=== PATIENT | female | born 1960 | race Caucasian/White ===

== ENCOUNTER → 2016-10-07 | Outpatient (CLI) | payer BC | LOC: MC.RAD 07:51 | DX: Z12.31 Encounter for screening mammogram for malignant neoplasm of breast (principal) ==

== ENCOUNTER → 2017-10-08 | Outpatient (CLI) | payer BC | LOC: MC.RAD 06:51 | DX: Z12.31 Encounter for screening mammogram for malignant neoplasm of breast (principal) ==

== ENCOUNTER → 2018-10-10 | Outpatient (CLI) | payer BC | LOC: MC.RAD 06:52 | DX: Z12.31 Encounter for screening mammogram for malignant neoplasm of breast (principal); R92.0 Mammographic microcalcification found on diagnostic imaging of breast ==

== ENCOUNTER → 2018-10-11 | Outpatient (CLI) | payer BC | LOC: MC.RAD 13:00 | DX: R92.0 Mammographic microcalcification found on diagnostic imaging of breast (principal) ==

== ENCOUNTER → 2018-10-12 | Outpatient (CLI) | payer BC | LOC: MC.RAD 06:55 | DX: R92.0 Mammographic microcalcification found on diagnostic imaging of breast (principal); R92.1 Mammographic calcification found on diagnostic imaging of breast ==

== ENCOUNTER 2018-11-04 08:40 | Day surgery (SDC) | payer BC ==
[~2018-11-04] VITALS: Ht 172.7 cm; Wt 81.7 kg
[2018-11-04 09:14] VITALS: BP 122/71; PULSE 79; TEMP 97.3
[2018-11-04] MEDS ORDERED: TYLENOL 325MG325 MG PO (09:25)
[2018-11-04] MEDS ORDERED: AMBIEN 10MG10 MG PO (09:26)
[2018-11-04] MEDS ORDERED: NORCO 325 MG-51 TAB PO (12:00)
[2018-11-04 12:16] VITALS: TEMP 97.6
[2018-11-04 12:40] VITALS: BP 122/68; PULSE 71
--- NOTE | 2018-11-04 12:40 | NUR ---
TO RM 6 PER CART FROM PACU. ALERT ORIENTED X3, TALKING TO STAFF. REQUESTED PARENTS TO WAIT IN WAITING RM TILL SHE IS READY TO GO HOME. DENIES PAIN OR DISCOMFORT DENIES N/V DRESSING CLEAN DRY INTACT RECEIVED WATER
[2018-11-04 12:55] VITALS: BP 127/74; PULSE 81
--- NOTE | 2018-11-04 12:55 | NUR ---
PATIENT ASKING WHAT SHE NEEDS TO DO TO GO HOME. INFORMED SHE WOULD NEED TO EAT DRINK AND PEE.
[2018-11-04 13:10] VITALS: BP 125/66; PULSE 67
--- NOTE | 2018-11-04 13:10 | NUR ---
RECEIVED CRACKERS AND 2ND CUP OF WATER.
[2018-11-04 13:20] VITALS: BP 115/84; PULSE 78
--- NOTE | 2018-11-04 13:20 | NUR ---
ATE 100% AND TOLERATED WELL
--- NOTE | 2018-11-04 13:30 | NUR ---
AMBULATED TO BATHROOM. VOIDED AND TOLERATED WELL. RECEIVED DISCHARGE INSTRUCTIONS AND VERBALIZED UNDERSTANDING. DISCONTINUED IV AND INT- CATHETER INTACT.
--- NOTE | 2018-11-04 13:40 | NUR ---
AFTER GETTING DRESSED SHE SAID SHE FELT A LITTLE NAUSEATED. PATIENT STATED SHE FELT SHE STILL WANTED TO GO HOME.
--- NOTE | 2018-11-04 13:45 | NUR ---
DISCHARGED PER WC BY NURSING STAFF TO PRIVATE CAR IN CARE OF MOTHER /FATHER.
== END 2018-11-04 13:56 | disposition home or self-care (01) ==
LOC: SDCO 08:40
DX: D05.11 Intraductal carcinoma in situ of right breast (principal); Z17.1 Estrogen receptor negative status [ER-]; E78.00 Pure hypercholesterolemia, unspecified; Z88.0 Allergy status to penicillin
CPT/HCPCS: J0690; J1100; J2250; J2405; J2704; J2795; J3010; J7120

== ENCOUNTER → 2019-10-13 | Outpatient (CLI) | payer BC ==
[~2019-10-13] MED LIST: AMBIEN 10MG10 MG PO; NORCO 325 MG-51 TAB PO; TYLENOL 325MG325 MG PO
== END ==
LOC: MC.RAD 07:12
DX: N60.01 Solitary cyst of right breast (principal)

== ENCOUNTER → 2020-10-14 | Outpatient (CLI) | payer BC | LOC: MC.RAD 06:55 | DX: Z12.31 Encounter for screening mammogram for malignant neoplasm of breast (principal) ==

== ENCOUNTER → 2021-10-15 | Outpatient (CLI) | payer BC | LOC: MC.RAD 06:53 | DX: Z12.31 Encounter for screening mammogram for malignant neoplasm of breast (principal) ==

== ENCOUNTER → 2023-10-25 | Outpatient (CLI) | payer BC | LOC: MC.RAD 06:50 | DX: Z12.31 Encounter for screening mammogram for malignant neoplasm of breast (principal) ==